=== PATIENT | male | born 1950 | race Caucasian/White ===

== ENCOUNTER 2016-08-21 15:36 | Emergency (ER) | payer MEDICARE, OTHER ==
[~2016-08-21 15:36] MED LIST: BACTDS PO; CEPH-443 PO; HYDR28CR43 TOP; IBUP-1542 PO
== END 2016-08-21 19:33 | disposition left against medical advice (07) ==
LOC: E/R 15:36
DX: Z53.21 Procedure and treatment not carried out due to patient leaving prior to being seen by health care provider (principal)

== ENCOUNTER 2017-03-07 08:14 | Day surgery (SDC) | payer MEDICARE, OTHER ==
[~2017-03-07] VITALS: Ht 180.3 cm; Wt 76.7 kg
[2017-03-07] MEDS ORDERED: PROPOFOL 20 ML ONE ×2 (09:58→10:47)
[2017-03-07 10:05] VITALS: Ht 180.3 cm; Wt 76.7 kg
[2017-03-07] MEDS ORDERED: BUPR300T48 PO (10:15)
[2017-03-07] MEDS ORDERED: GABA300C16 PO (10:15)
[2017-03-07 10:20] VITALS: BP 152/87; PULSE 51; RESP 18
--- NOTE | 2017-03-07 10:51 | OPPN ---
Date/Time of Note Date/Time of Note DATE: 03/07/17 TIME: 10:50 Operative Report Preoperative Diagnosis Screening colonoscopy Postoperative Diagnosis Diverticulosis of the colon Internal hemorrhoids Random biopsies were taken to rule out microscopic colitis No colon neoplasm is identified Operation/Procedure Performed Colonoscopy and biopsy Surgeon see signature line blood bank assistant None Anesthesia: MAC Estimated blood loss: none Transfusion Required none Specimen Random colon biopsy Grafts/Implants none Complications none JESSICA AKHTAR MD Mar 07, 2017 10:51
[2017-03-07 11:17] VITALS: BP 140/87; RESP 10
--- NOTE | 2017-03-07 12:07 | GILP ---
DATE OF PROCEDURE: NAME OF PROCEDURES: Colonoscopy and biopsy. SURGEON: Ho Almaguer MD PREOPERATIVE DIAGNOSIS: Screening colonoscopy. POSTOPERATIVE DIAGNOSES 1. Colonoscopy all the way to the cecum. 2. Diverticulosis of the colon. 3. Internal hemorrhoids. 4. Random biopsies were taken to rule out microscopic colitis. 5. No colon neoplasm was identified. INDICATION FOR THE PROCEDURE: Mr. Saad Miranda is a 66-year-old male patient who was scheduled for screening colonoscopy. The patient had history of colon polyps. He also was complaining of chr onic diarrhea. The procedure and possible complications are well explained to the patient, he understood and consen ernestine to the procedure. DESCRIPTION OF PROCEDURE: Under the influence of anesthesia, the colonoscope was carefully introduc ed in the rectum and under direct vision, it was advanced all the way to the cecum. FINDINGS: The patient had diverticulosis of the colon. He also had internal hemorrhoids. Random b iopsies were taken to rule out microscopic colitis. No colon neoplasm was identified. He tolerated the procedure very well and there was no complication from the procedure. At the end o f the procedure, he was awake with stable vital signs and he was discharged home to the care of his family. IMPRESSION: Please see postoperative diagnosis. PLAN: 1. Bentyl 10 mg p.o. t.i.d. p.r.n. for diarrhea. 2. Await histopathology report. 3. Next screening colonoscopy in 10 years. Dictated By: HO BLACKMAN/DONNA Conf#: [id number] DID#: [id number]
== END 2017-03-07 12:19 | disposition home or self-care (01) ==
LOC: GIL 08:14
PROVIDERS: ATTEND Internal Medicine Gastroenterology
DX: Z12.11 Encounter for screening for malignant neoplasm of colon (principal); K57.90 Diverticulosis of intestine, part unspecified, without perforation or abscess without bleeding; K64.8 Other hemorrhoids
CPT/HCPCS: 88305

== ENCOUNTER 2017-06-06 02:29 | Emergency (ER) | END 2017-06-06 06:47 | disposition home or self-care (01) ==

== ENCOUNTER 2017-08-01 11:04 | Day surgery (SDC) | END 2017-08-01 16:05 | disposition home or self-care (01) ==

== ENCOUNTER 2017-08-02 10:29 | Emergency (ER) | END 2017-08-02 14:35 | disposition home or self-care (01) ==

== ENCOUNTER 2018-08-14 10:15 | Observation (INO) | payer MEDICARE, OTHER ==
[2018-08-08 12:27] VITALS: BMI 25.5
--- NOTE | 2018-08-08 14:13 | RADRPT ---
Vent Rate: 52 bpm RR Interval: 0 msec AL Interval: 138 msec QRS Duration: 108 msec QT Interval: 420 msec QTC Interval: 390 msec P-R-T [place]: 45 - 16 - 32 degrees Sinus bradycardia Incomplete left bundle branch block Borderline ECG Electronically Signed By: Jimmy Hill
[~2018-08-14] VITALS: Ht 180.3 cm; Wt 82.9 kg
[2018-08-14] VITALS (15 sets, daily range): BP systolic 119–162; BP diastolic 77–86; PULSE 58–78; RESP 12–18; Ht 180.3 cm; Wt 82.9 kg
--- NOTE | 2018-08-14 07:02 | PREOPHP ---
DATE OF ADMISSION: 08/14/2018 CHIEF COMPLAINT AND HISTORY OF PRESENT ILLNESS: The patient is a 68-year-old gentleman with history of hypertension who recently underwent cholecystectomy. He was seen by mixing machine tender cork gasket for symptomatic ri ght foot hammertoe. The patient is being scheduled for surgery on 08/14/2018. The patient denied an y chest pain or shortness of breath. No history of headache, dizziness, syncope. No history of feve r or chills. No history of leg edema. No history of CVA. No history of congestive heart failure. No history of abdominal pain. REVIEW OF SYSTEMS: Rest of the systems is unremarkable. ALLERGIES: NONE. PAST SURGICAL HISTORY: The patient is status post laparoscopic cholecystectomy, appendectomy, knee s urgery. SOCIAL HISTORY: Ex-smoker. FAMILY HISTORY: Noncontributory. PHYSICAL EXAMINATION: GENERAL: Revealed the patient to be awake, alert. VITAL SIGNS: Stable, afebrile. HEENT: No eye discharge or redness. Conjunctivae and lids are normal. Oropharynx is clear. NECK: No mass. CHEST: Fairly clear. CARDIOVASCULAR: S1, S2 normal. No murmur. ABDOMEN: Soft, nondistended, nontender. Bowel sounds are present. EXTREMITIES: No leg edema. NEUROLOGIC: The patient is awake, alert, fairly oriented with no gross focal deficit. LABORATORY DATA: WBC 5.8, hemoglobin 13.6, platelet 240. Sodium 142, potassium 4.4, BUN 21, creatin ine 0.7, glucose 69. Coagulations were normal. DIAGNOSTIC DATA: Chest x-ray is negative. EKG: Sinus bradycardia, incomplete left bundle branch bl ock. IMPRESSION: 1. Right foot hammertoe, scheduled for surgery. 2. Hypertension. 3. Insomnia. PLAN: The patient is medically cleared for surgery. We will follow him postoperatively if patient g ets admitted after surgery. The patient is to resume his home medication as before. The patient jerad es trazodone 150 mg at bedtime and Cozaar 50 mg once a day. Dictated By: TELMA NEWBY MD AB/NTS Conf#: [id number] DID#: [id number] CC: AYLIN ABREU MD;*EndCC*
[~2018-08-14 10:15] MED LIST changes: -BACTDS PO; -CEPH-443 PO; -HYDR28CR43 TOP; -IBUP-1542 PO; +LOSA50TA14 PO; +ONDA4TAB14 PO; +TRAZ150T65 PO
[2018-08-14] MEDS ORDERED: TRAZ150T65 PO (11:13)
[2018-08-14] MEDS ORDERED: LACTATED RINGER'S 1,000 ML IV SCH (12:00)
--- NOTE | 2018-08-14 12:37 | HPN ---
Date/Time of Note Date/Time of Note DATE: 08/14/18 TIME: 12:36 Interval H&P Admission Note Pt. seen H&P reviewed: No system changes AIDE GOMEZ DPM Aug 14, 2018 12:37
[2018-08-14] MEDS ORDERED: LIDOCAINE 1% (MPF) 30 ML INJ ONE (13:09)
[2018-08-14] MEDS ORDERED: BUPIVACAINE 0.5% (SDV) 30 ML INJ ONE (13:09)
--- NOTE | 2018-08-14 13:19 | PREAC ---
Date/Time of Note Date/Time of Note DATE: 08/14/18 TIME: 13:16 Anesthesia Eval and Record Evaluation Time Pre-Procedure Interview DATE: 08/14/18 TIME: 13:16 Age 68 Sex male NPO: 8 hrs Preoperative diagnosis 4th and 5th toe correction Planned procedure 4th and 5th toe correction Past Medical History Past Medical History: Includes Cardio: HTN, Arrythmia (incomplete bundle branch block ) Surgery & Anesthesia Issues No known issue Meds Anticoagulation: No Beta Lynda within 24 hr: No Reason Beta Lynda not given: Pt. not on B-Lynda Reported Medications Trazodone Hcl* (Trazodone Hcl*) 150 Mg Tablet, 75 MG PO QHS, #60 TAB 08/14/18 Discontinued Reported Medications Trazodone Hcl* (Trazodone Hcl*) 150 Mg Tablet, 150 MG PO QHS, #30 TAB 08/01/17 Losartan Potassium* (Losartan Potassium*) 50 Mg Tablet, 50 MG PO DAILY, TAB 08/01/17 Discontinued Scripts Ondansetron (Ondansetron Odt) 4 Mg Tab.rapdis, 4 MG PO Q6H PRN for NAUSEA AND/OR VOMITING, #30 TAB Prov:AYLIN ABREU MD 08/02/17 Current Medications Lactated Ringer's 1,000 ml @ 30 mls/hr Q24H IV ; Start 08/14/18 at 12:00 Meds reviewed: Yes Allergies Coded Allergies: No Known Allergy (Unverified , 08/14/18) Allergies Reviewed: Yes Labs/Studies Labs Reviewed: Reviewed by anesthesiologist test: N/A Pre-procedure Exam Last vitals Vital Signs Date Temp Pulse Resp B/P (MAP) Pulse Ox O2 O2 Flow FiO2 Time Delivery Rate 08/14/18 97.8 65 16 142/86 98 Room Air 11:34 (104) Airway: Adequate mouth opening, Adequate thyromental dist Mallampati: Mallampati IV Teeth: Normal Lung: Normal Heart: Normal ASA Physical Status ASA physical status: 2 Emergency: None Pre-operative Attestations Prior to commencing anesthesia and surgery, the patient was re-evaluated, there was verification of: *The patient's identity *The results of appropriate recent lab work and preoperative vital signs *The above evaluation not changing prior to induction *Anesthetic plan, risk benefits, alternative and complications discussed with patient/family; questions answered; patient/family understands, accepts and wishes to proceed. NETO MORRELL DO Aug 14, 2018 13:19
[2018-08-14] MEDS ORDERED: MIDAZOLAM 1 MG/ML 2 ML INJ ONE ×4 (13:20→13:32)
[2018-08-14] MEDS ORDERED: CEFAZOLIN 1 GM INJ ONE (13:35)
[2018-08-14] MEDS ORDERED: KETAMINE (50 MG/ML) 10 ML VIAL ONE (13:37)
[2018-08-14] MEDS ORDERED: FENTAnyl 50 MCG/ML VIAL ONE ×2 (14:24→16:10)
[2018-08-14] MEDS ORDERED: hydrALAzine 20 MG INJ ONE (15:56)
--- NOTE | 2018-08-14 17:17 | SIPON ---
Date/Time of Note Date/Time of Note DATE: 08/14/18 TIME: 17:13 Operative Report Preoperative Diagnosis Hammertoe 3rd, 4th and 5th right contracture of 4th and 5th MPJ Postoperative Diagnosis SAME Operation/Procedure Performed 1) Arthrodesis of right 3rd toe with kwire fixation 2) Arthrodesis of right 4th toe with screw fixation 3) Arthrodesis of right 5th toe with k wire fixation 4) Daina osteotomy and lengthening of extensor tendon 5th MPJ 5) Fifth metatarsal head resection and lengthening of extensor tendon Surgeon Dr. Pearson see signature line research assistant none Anesthesia: spinal Estimated blood loss: minimal Transfusion Required none Specimen 4th toe bone 5th toe bone 5th met head Grafts/Implants none Complications none AIDE PEARSON DPM Aug 14, 2018 17:17
--- NOTE | 2018-08-14 17:25 | PAC ---
Date/Time of Note Date/Time of Note DATE: 08/14/18 TIME: 17:25 Post-Anesthesia Notes Post-Anesthesia Note Last documented vital signs Vital Signs Date Temp Pulse Resp B/P (MAP) Pulse Ox O2 O2 Flow FiO2 Time Delivery Rate 08/14/18 98 75 18 140/62 98 Room Air 1725 Activity: WNL Respiratory function: WNL Cardiovascular function: WNL Mental status: Baseline Pain reasonably controlled: Yes Hydration appropriate: Yes Nausea/Vomiting absent: Yes NETO MORRELL DO Aug 14, 2018 17:25
[2018-08-14] MEDS ORDERED: FENTAnyl 50 MCG/ML VIAL IV ONE (20:30)
[2018-08-14] MEDS ORDERED: TAMSULOSIN (SR) 0.4 MG CAP PO ONE (21:00)
[2018-08-14] MEDS ORDERED: ACETAMINOPHEN 325 MG TAB PO PRN (21:00)
[2018-08-14] MEDS: HYDROCODONE/APAP (5/325) TAB PO PRN (21:45)
--- NOTE | 2018-08-14 23:55 | HP ---
DATE OF ADMISSION: 08/14/2018 CHIEF COMPLAINT: Difficulty in urinating and patient's right foot hammertoe surgery. HISTORY OF PRESENT ILLNESS: The patient is a 68-year old gentleman well known to me. The patient has history of BPH, insomnia and was seen by Dr. Aide Pearson as an outpatient for third, fourth and fifth hammertoe right foot and also contracture of the fourth and fifth metatarsophalangeal joint. The patient was brought in to hospital today and underwent arthrodesis of right third, fourth and fifth toe, osteotomy and lengthening of extensor tendon foot fifth metatarsophalangeal joint, fifth metatarsal head resection and lengthening of extensor tendon by Dr. Pearson. The patient was operated under spinal anesthesia. Postoperatively, the patient developed difficulty in urinating and is being admitted for further evaluation and management. The patient denied any chest pain or shortness of breath. No history of headache or syncope. No previous history of any urinary complaint. No history of recent dysuria or hematuria. No history of abdominal pain. No history of nausea, vomiting. The patient does have history of insomnia for which he takes Trazodone. The patient also has history of hypertension. REVIEW OF SYSTEMS: No history of headache, dizziness, syncope. No history of CVA. No history of congestive heart failure, no history of claudication. Other than postoperative pain and difficulty urination, the rest of review of systems are unremarkable. PAST MEDICAL HISTORY: As stated above. PAST SURGICAL HISTORY: Status post laparoscopic cholecystectomy, appendectomy and knee surgery. SOCIAL HISTORY: Ex-smoker. FAMILY HISTORY: Noncontributory. ALLERGIES: NONE. PHYSICAL EXAMINATION: GENERAL: Revealed the patient to be awake, alert, fairly oriented. VITAL SIGNS: Temperature 97.6, pulse 67, respiration 18, blood pressure 162/86, O2 saturation 96% on room air. HEENT: Atraumatic, normocephalic. Conjunctivae and lids are normal. Oropharynx clear. NECK: Supple, no mass, no thyromegaly. CHEST: Fairly clear. CARDIOVASCULAR: S1, S2 normal, no murmur. ABDOMEN: Soft, nondistended, nontender. Bowel sounds plus. EXTREMITIES: No leg edema. The patient is status post surgery of the right foot. NEUROLOGIC: The patient is awake, alert with no gross focal deficit. LABORATORY DATA: WBC 5.8, hemoglobin 13.6, platelet 248. Sodium 142, potassium 4.4, BUN 20, creatinine 0.7, glucose 69, calcium 9.3. PSA 0.5. IMPRESSION: 1. Right foot hammertoe third, fourth and fifth digits with contracture fourth and fifth metatarsophalangeal joint, status post surgery as outlined above. 2. Hypertension. 3.BPH : was not taking flomax which was prescribed to him as an outpatient Now have difficulty in urination after spinal anesthesia. PLAN: The patient will be admitted on medical floor. The patient will be started on 2 gram sodium diet. We will start him on Flomax. For hypertension, the patient will be started on Cozaar. For pain control, the patient will be started on Tylenol and [place]. I spoke with Dr. Aide Pearson regarding plan of care. The patient recent EKG did not have any acute ST changes and chest x-ray was unremarkable. We will do followup CBC and BMP. If patient continues to have difficulty urinating and requires in and out catheterization, then we will also obtain urology consultation. We will continue to monitor him. Dictated By: TELMA NEWBY MD AB/NTS Conf#: [id number] DID#: [id number] CC: ELLIE CARDOZA DO; ATTILA LUCAS DO; PATRICK SAAVEDRA MD; AIDE PEARSON DPM; SANDI MCCRAY MD; JESSICA AKHTAR MD; AYLIN ABREU MD; LEANNA PARISH MD;*EndCC* MTDD
[2018-08-15] MEDS: HYDROCODONE/APAP (5/325) TAB PO PRN ×5 (01:12→13:22)
[2018-08-15 01:18] VITALS: BP 130/76; PULSE 64; RESP 18
[2018-08-15 07:22] VITALS: BP 152/75; PULSE 64; RESP 18
[2018-08-15] MEDS ORDERED: LOSARTAN 50 MG TAB PO SCH (09:00)
--- NOTE | 2018-08-15 09:06 | PDOCDIS ---
Discharge Instructions CONDITION [id number] Patient Condition: [id number] Good HOME CARE INSTRUCTIONS: [id number] Diet Instructions: Ouxbl8p Reduced Sodium ACTIVITY: [id number] Activity Restrictions: Qxmvb6m Slowly Increase Activity Avoid heavy lifting Avoid Heavy Housework FOLLOW UP/APPOINTMENTS Follow-up Plan F/U with Drs. Pearson & Marcella next week TELMA NEWBY MD Aug 15, 2018 09:06
[2018-08-15] MEDS ORDERED: LOSA50TA2 PO (09:08)
[2018-08-15] MEDS ORDERED: TAMS-14 PO (09:08)
--- NOTE | 2018-08-15 10:39 | DS ---
DATE OF ADMISSION: 08/14/2018 DATE OF DISCHARGE: 08/15/2018 DISCHARGE DIAGNOSES: 1. Right foot hammertoe third, fourth and 5th digit and contracture fourth and fifth metatarsal join t, status post surgery. 2. Hypertension. 3. Benign prostatic hypertrophy. DISCHARGE MEDICATIONS: 1. The patient to take Flomax 0.4 mg at bedtime. 1. Cozaar 25 mg once a day in addition to [place] 5/325 q.4h. p.r.n. REASON FOR ADMISSION: The patient is a 68-year-old gentleman with a history of benign prostatic hype rtrophy and was recently started on Flomax; however, but had not been taking it. The patient also valladares s history of mild hypertension but was on dietary restrictions. The patient also has history of inso mnia. The patient was seen by Dr. Aide Pearson recently as an outpatient for right foot hammertoes. The patient was brought into hospital yesterday and underwent surgery. The patient postoperatively developed difficulty urinating and was admitted for evaluation. The patient was admitted with diagno sis of difficulty in urination and for postop pain control. The patient denies any chest pain, short ness of breath. No previous history of urinary retention. No history of hematuria. No history of h eadache, dizziness, syncope. The patient on the day of discharge is breathing comfortably and is voi ding better. The patient was started on Cozaar 50 mg. Blood pressure this morning was a nice 130/76 . The patient's Cozaar dose will be reduced to 25 mg once a day. PHYSICAL EXAMINATION: HEENT: No eye discharge or redness. Conjunctivae are normal. Oropharynx clear. NECK: Supple. No thyromegaly. CHEST: Fairly clear. No use of accessory muscles. CARDIOVASCULAR: S1, S2 normal, no murmur. ABDOMEN: Soft, nontender. Bowel sounds present. EXTREMITIES: No leg edema. Dressing on right foot and a boot in place, left foot normal. Pedal pul ses normal. NEUROLOGIC: The patient is awake, alert, fairly oriented with no gross focal deficit. LABORATORY DATA: Done this morning, WBC 8.2, hemoglobin 13.4, platelet 215. Sodium 130, potassium 3 .6, BUN 10, creatinine 0.5, glucose 104, calcium 9. CONDITION AT DISCHARGE: Stable. FOLLOWUP: Follow up with me as an outpatient and with Dr. Shaan Pearson next week. DIET: Two-gram sodium, regular diet. Dictated By: TELMA PABON/DONNA Conf#: [id number] DID#: [id number] CC: AIDE PEARSON DPM;*EndCC*
--- NOTE | 2018-08-15 11:31 | OPR ---
DATE OF OPERATION: 08/14/2018 PREOPERATIVE DIAGNOSES: 1. Hammertoe, right 3rd toe. 2. Hammertoe, right 4th toe. 3. Hammertoe, right 5th toe. 4. Contracture of right 4th metatarsophalangeal joint. 5. Contracture of 5th metatarsophalangeal joint. POSTOPERATIVE DIAGNOSES: 1. Hammertoe, right 3rd toe. 2. Hammertoe, right 4th toe. 3. Hammertoe, right 5th toe. 4. Contracture of right 4th metatarsophalangeal joint. 5. Contracture of 5th metatarsophalangeal joint. PROCEDURE PERFORMED: 1. Arthrodesis of right 3rd toe with fixation. 2. Arthrodesis of right 4th toe with fixation. 3 Arthrodesis of right 5th toe with fixation. 4. Daina osteotomy of 4th metatarsal with extensor tendon lengthening. 5. Excision of right 5th metatarsal head with extensor tendon lengthening. PATHOLOGY: 1. 4th toe bone. 2. 5th toe bone. 3. 5th metatarsal head. SURGEON: Aide Pearson DPM GENERAL FARMER: None. Case being proctored. HEMOSTASIS: Right thigh tourniquet inflated to 300 mmHg for approximately 2.5 hours. ESTIMATED BLOOD LOSS: Minimal, less than 3 mL. MATERIALS USED: 1. Two K wires. 2. One 40 mm headed cannulated screw by Arthrex. 3. One quick fix screw by Arthrex. INJECTABLES: 1% lidocaine plain, 10 mL preoperatively and 10 mL of 0.5% Marcaine plain postop intra operatively. CONDITION: To recovery stable. DESCRIPTION OF PROCEDURE: The patient was brought into the operating room [facility] The anesthesiologist proceeded to place the patient under spinal anesthesia with sedat ion since the patient had abnormal EKG. The patient's right lower extremity was scrubbed and draped in the usual aseptic manner. The right side tourniquet was inflated to 300 mmHg. Attention was dire cted toward the right forefoot. Throughout the procedure, fluoroscopy was used as well. Attention w as directed toward the right third toe. 1. Arthrodesis of right 3rd toe. Minimal stab incisions were made medial to the right 3rd toe using a #15 blade and then a Josefina bur was introduced through that incision and an osteotomy was perform ed at the PIPJ and the base of the proximal phalanx. Then a K wire was introduced through the tip of the toe to the base of the toe in order to hold the 3rd toe in a corrected, reduced new position. T chris K-wire was bent, cut and will be removed in about 1 month in the office. 2. Attention was then directed toward the right 4th toe where an incision was made from the 4th PIP joint to the 5th MPJ. The incision was deepened down to the level of the bone. All neurovascular st ructures were identified and retracted. All superficial bleeders were cauterized as necessary. Atte ntion was first directed toward the PIPJ where the medial and lateral collateral ligaments were excis ed. The joint was identified and the head of the proximal phalanx was removed using a sagittal saw u nder power, toward the base of the distal middle phalanx. Then the excised bone was sent to patholog y. K-wire was introduced to position the toe in a new aligned, reduced position, then a 3-0 headed 4 0 mm screw was used to hold the toe in its new position and K-wire was removed. It was noted after t he Kelikian test that the MPJ was not reduced. Therefore, a Daina osteotomy was performed at the head of the 4th metatarsal with a sagittal saw. The osteotomy was made with a sagittal saw from distal d orsal to proximal plantar and the capsule fragment was most proximally a few millimeters and position ed capturing the new position with a quick fix screw by Arthrex. The rest of the wound was nicely cl eaned out using a rongeur over the 4th metatarsal, then the extensor tendon was lengthened using a Z- plasty. The surgical site was flushed with antibiotic impregnated saline solution. It was noted karolina t the MPJ was reduced as well as the toe. The subcutaneous tissue was reapproximated utilizing 2-0 V icryl and the skin was reapproximated utilizing 4-0 nylon in a horizontal mattress stitch fashion. A ttention was then directed towards the 5th toe where a linear incision was made from 5th PIPJ to MPJ. Neurovascular structures were identified and retracted. All superficial bleeders were cauterized a s necessary. First we looked at the 5th toe PIPJ joint. The medial and lateral collateral ligaments were excised. The joint was identified. The head of the proximal phalanx was resected in total and sent to pathology. The base of the distal phalanx was excised and K-wire was used to hold the toe i n a corrected, well aligned position. After the Kelikian test, it was noted that the MPJ was not red uced. Therefore, using a sagittal saw under power, the head of the fifth metatarsal was excised in t otal and sent to pathology. The Kelikian test was done, it was noted that the toe was reduced as wel l as the MPJ joint, but there was mild contracture; therefore, the extensor tendon of the 5th MPJ was lengthened using the Z-plasty and sutured with 3-0 Vicryl. The surgical site was flushed with an an tibiotic impregnated saline solution. #3-0 Vicryl was used to reapproximate the subcutaneous tissue in a simple interrupted fashion and 4-0 nylon was used to reapproximate the skin in a simple interrup ernestine stitch fashion. The foot was injected with 0.5% Marcaine plain, 10 mL. The tourniquet was relea sed and there was noted prompt hyperemic response of the right foot. Also, in the middle of the proc edure, the tourniquet was released for about 50 minutes and then again inflated. The foot was washed and dressed with Steri-Strips, 4 x 4 gauze, Melania and Coban was placed. The patient was returned to the post-anesthesia care unit with all vital signs stable and intact since the patient had spinal an esthesia, the patient was kept overnight and discharged in the morning. Dictated By: AIDE DUMONT Conf#: [id number] DID#: [id number]
[2018-08-15] MEDS ORDERED: TAMSULOSIN (SR) 0.4 MG CAP PO SCH (21:00)
[2018-08-16] MEDS ORDERED: LOSARTAN 25 MG TAB PO SCH (09:00)
== END 2018-08-15 15:40 | disposition home or self-care (01) ==
LOC: SDS 10:15 → MS1 20:22
PROVIDERS: ADMIT Podiatrist Foot Surgery; ATTEND Podiatrist Foot Surgery
DX: M20.41 Other hammer toe(s) (acquired), right foot (principal); M24.574 Contracture, right foot; I10 Essential (primary) hypertension; N40.0 Benign prostatic hyperplasia without lower urinary tract symptoms; G47.00 Insomnia, unspecified; Z87.891 Personal history of nicotine dependence
CPT/HCPCS: 28285; 28308; 71045; 73630; 80048; 81003; 84153; 84154; 85025; 85610; 85730; 88304; 88311; 93005; G0378; J0690; J2250; J3010; J7120; J0360